=== PATIENT | female | born 1980 | race Caucasian/White ===

== ENCOUNTER 2021-01-25 17:57 | Emergency (ER) | payer MEDICAID ==
[~2021-01-25] VITALS: Ht 175.3 cm; Wt 67.1 kg
[2021-01-25 18:15] VITALS: BP 116/83
--- NOTE | 2021-01-25 18:17 | NUR ---
Pt ambulated to ER bed 11 with a steady gait.
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
--- NOTE | 2021-01-25 18:29 | NUR ---
Dr. Fink at pt bedside for further evaluation.
[2021-01-25] MEDS ORDERED: FLUORESCEIN OPTH STRIP 1 MG OP ONE (18:35)
[2021-01-25] MEDS ORDERED: TETRACAINE HCL/PF 0.5% OPTH 4 ML BTL ONE (18:53)
[2021-01-25] MEDS ORDERED: TETRACAINE HCL/PF 0.5% OPTH 4 ML BTL OP ONE (18:55)
--- NOTE | 2021-01-25 18:56 | NUR ---
Dr. Fink at pt bedside for procedure.
[2021-01-25] MEDS ORDERED: ERYT5OIN58 OP (19:00)
[2021-01-25] MEDS ORDERED: ACET-8386 PO (19:00)
[2021-01-25] MEDS ORDERED: IBUP-2213 PO (19:00)
--- NOTE | 2021-01-25 19:24 | NUR ---
Gave report to YANA Barone, transfer of care at this time.
--- NOTE | 2021-01-25 19:25 | NUR ---
RECEIVED REPORT FROM PRICILLA MILLAN FOR CONTINUITY OF CARE.
[2021-01-25 19:30] VITALS: BP 120/88
--- NOTE | 2021-01-25 19:30 | NUR ---
Patient discharged with v/s stable. Written and verbal after care instructions given and explained. Patient alert, oriented and verbalized understanding of instructions. Ambulatory with steady gait. All questions addressed prior to discharge. ID band removed. Patient advised to follow up with PMD. Rx of HYDROCODONE/ACETAMINOPHEN, IBUPROFEN, ERYTHROMYCIN given. Patient educated on indication of medication including possible reaction and side effects. Opportunity to ask questions provided and answered.
== END 2021-01-25 19:30 | disposition home or self-care (01) ==
LOC: MED 17:57
DX: S05.02XA Injury of conjunctiva and corneal abrasion without foreign body, left eye, initial encounter (principal); Z90.49 Acquired absence of other specified parts of digestive tract; W22.8XXA Striking against or struck by other objects, initial encounter; Y93.89 Activity, other specified; Y92.89 Other specified places as the place of occurrence of the external cause; Y99.8 Other external cause status
CPT/HCPCS: 99283